=== PATIENT | female | born 1945 | race Caucasian/White ===

== ENCOUNTER 2022-05-23 11:55 | Emergency (ER) | payer OTHER ==
[2022-05-23 12:57] LABS: BASOPHIL 0.6 % (0-2); EOSINOPHIL 2.1 % (0-7); HCT 40.4 % (37.0-47.0); LYMPHOCYTE 14.5 % (15-48); MCH 31.6 pg (25.0-31.0); MCHC 32.2 g/dL (32.0-36.0); MCV 98.1 fL (78.0-100.0); MONOCYTE 7.9 % (0-12); MPV 9.9 fL (6.0-9.5); NEUTROPHIL 74.6 % (41-80); NRBC 0; PLT 332 K/uL (150-400); RBC 4.12 M/uL (4.20-5.40); RDW 14.8 % (11.5-14.0); WBC 9.7 K/uL (4.0-10.5)
[2022-05-23 14:10] LABS: BILIRUBIN - TOTAL 0.6 mg/dL (0.2-1.0); BUN/CREAT RATIO (CALC) 21.3 RATIO; CREATININE 0.75 mg/dL (0.51-0.95); GLOBULIN (CALCULATION) 4.6 g/dL; POTASSIUM 3.4 mmol/L (3.5-5.1); TOTAL PROTEIN 6.6 g/dL (6.4-8.2)
[2022-05-24] MEDS ORDERED: MEDROL 4MG DOSEP4 MG PO (12:34)
[2022-05-24] MEDS ORDERED: AMOXICILLIN875 MG PO (12:34)
== END 2022-05-23 16:45 | disposition home or self-care (01) ==
LOC: FER 11:55
PROVIDERS: Emergency Medicine
DX: J44.1 Chronic obstructive pulmonary disease with (acute) exacerbation (principal); R91.8 Other nonspecific abnormal finding of lung field; I25.10 Atherosclerotic heart disease of native coronary artery without angina pectoris; Z28.310 Unvaccinated for COVID-19; I50.9 Heart failure, unspecified; Z88.2 Allergy status to sulfonamides; Z88.6 Allergy status to analgesic agent; Z91.041 Radiographic dye allergy status
CPT/HCPCS: 36415; 36600; 71045; 71250; 80053; 82803; 83605; 83880; 84145; 84484; 85025; 85379; 93005; 94760

== ENCOUNTER 2022-06-20 12:10 | Inpatient (IN) | payer OTHER ==
[~2022-06-20] VITALS: Ht 167.6 cm; Wt 97.7 kg
[~2022-06-20 12:10] MED LIST: AMOXICILLIN875 MG PO; MEDROL 4MG DOSEP4 MG PO
[2022-06-20 12:46] LABS: BASOPHIL 0.4 % (0-2); EOSINOPHIL 0.6 % (0-7); HCT 42.1 % (37.0-47.0); HGB 13.4 g/dl (12.5-16.0); LYMPHOCYTE 9.6 % (15-48); MCH 31.2 pg (25.0-31.0); MCHC 31.8 g/dL (32.0-36.0); MCV 97.9 fL (78.0-100.0); MONOCYTE 5.6 % (0-12); MPV 9.7 fL (6.0-9.5); NEUTROPHIL 83.1 % (41-80); NRBC 0; PLT 399 K/uL (150-400); RDW 14.6 % (11.5-14.0); WBC 17.7 K/uL (4.0-10.5)
[2022-06-20 13:04] LABS: CREATININE 0.8 mg/dL (0.51-0.95); POTASSIUM 3.9 mmol/L (3.5-5.1)
[2022-06-20 13:08] LABS: LACTIC ACID 1.4 mmol/L (0.4-1.9)
[2022-06-20 13:49] LABS: PROTHROMBIN TIME 63.3 SECONDS (11.9-13.9)
[2022-06-20 14:04] LABS: INR 7.91 (0.9-1.2)
[2022-06-20 14:05] LABS: PTT 153.8 SECONDS (24.9-34.6)
[2022-06-20 18:03] LABS: CORONAVIRUS 2019 SARS-COV-2 NEGATIVE (NEGATIVE); INFLUENZA A NAA NEGATIVE (NEGATIVE)
[2022-06-20] MEDS ORDERED: CITALOPRAM HBR20 MG PO (18:03)
[2022-06-20] MEDS ORDERED: HYDROCODON-ACE1 EAC6 PO (18:03)
[2022-06-20] MEDS ORDERED: BUMEX1 MG PO (18:04)
[2022-06-20] MEDS ORDERED: NEURONTIN300 MG PO (18:05)
[2022-06-20] MEDS ORDERED: SUCRALFATE1 GM/10 ML PO (18:05)
[2022-06-20] MEDS ORDERED: NYSTOP60 GM TOP (18:06)
[2022-06-20] MEDS ORDERED: POTASSIUM CHLO20 ME1 PO (18:07)
[2022-06-20] MEDS ORDERED: ANORO ELLIPTA1 EACH INH (18:08)
[2022-06-20] MEDS ORDERED: WARFARIN SODIUM3 MG PO (18:11)
[2022-06-21 07:16] LABS: HCT 40.2 % (37.0-47.0); HGB 12.9 g/dl (12.5-16.0); MCHC 32.1 g/dL (32.0-36.0); MCV 99.8 fL (78.0-100.0); MPV 9.8 fL (6.0-9.5); RBC 4.03 M/uL (4.20-5.40); RDW 14.6 % (11.5-14.0); WBC 15.9 K/uL (4.0-10.5)
[2022-06-21 07:23] LABS: PROTHROMBIN TIME 84.7 SECONDS (11.9-13.9)
[2022-06-21 07:43] LABS: BUN/CREAT RATIO (CALC) 29.5 RATIO; CREATININE 0.78 mg/dL (0.51-0.95); POTASSIUM 3.6 mmol/L (3.5-5.1)
[2022-06-21 07:53] LABS: INR 11.55 (0.9-1.2)
--- NOTE | 2022-06-21 14:41 | NUR ---
06/21/22 Ms. Romero lives at home with her former spouse. She is bedbound and the former spouse provides care. A caregiver through [facility] (Likely a Waiver program) is provided 5 days a week for 7 hours. Ms. Romero is followed by [facility]. [facility] has been notified of admission. Please call [facility] at [phone] if patient discharges over the weekend. - Ms. De Luna has a hospital bed and yousif lift.
[2022-06-22 05:55] LABS: HCT 34.1 % (37.0-47.0); MCH 31.7 pg (25.0-31.0); MCHC 32.3 g/dL (32.0-36.0); MCV 98.3 fL (78.0-100.0); MPV 9.6 fL (6.0-9.5); RBC 3.47 M/uL (4.20-5.40); RDW 14.9 % (11.5-14.0); WBC 9.5 K/uL (4.0-10.5)
[2022-06-22 06:00] LABS: INR 11.25 (0.9-1.2)
[2022-06-22 06:06] LABS: BUN/CREAT RATIO (CALC) 35.1 RATIO; CREATININE 0.74 mg/dL (0.51-0.95); POTASSIUM 4.1 mmol/L (3.5-5.1)
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
[2022-06-23 06:36] LABS: BASOPHIL 0.9 % (0-2); EOSINOPHIL 1.4 % (0-7); HCT 31.5 % (37.0-47.0); HGB 9.8 g/dl (12.5-16.0); MCHC 31.1 g/dL (32.0-36.0); MCV 99.7 fL (78.0-100.0); MONOCYTE 8.9 % (0-12); MPV 9.5 fL (6.0-9.5); NRBC 0; PLT 334 K/uL (150-400); RBC 3.16 M/uL (4.20-5.40); RDW 14.7 % (11.5-14.0); WBC 8.1 K/uL (4.0-10.5)
[2022-06-23 06:44] LABS: INR 2.12 (0.9-1.2)
[2022-06-23 06:54] LABS: BUN/CREAT RATIO (CALC) 31.8 RATIO; CREATININE 0.66 mg/dL (0.51-0.95)
[2022-06-23] MEDS ORDERED: TOPROL XL 25MG25 MG PO (08:40)
[2022-06-23] MEDS ORDERED: CARDIZEM CD180 MG PO (08:40)
[2022-06-23] MEDS ORDERED: NORCO 5-325 TA1 EACH PO (08:46)
[2022-06-23] MEDS ORDERED: AMOX TR-K CLV1 EAC4 PO (08:46)
[2022-06-23] MEDS ORDERED: JANTOVEN2 MG PO (08:49)
[2022-06-23] MEDS ORDERED: JANTOVEN1 MG PO (09:06)
== END 2022-06-23 10:46 | disposition home health service (06) | DRG 155 ==
LOC: FER 12:10 → FMS 15:25 → FTCU 15:25 → FMS 16:47 → FTCU 06-21 12:09
PROVIDERS: Emergency Medicine; Family Medicine; ADMIT Allergy & Immunology Allergy
DX: K11.20 Sialoadenitis, unspecified (principal); C78.01 Secondary malignant neoplasm of right lung; I48.91 Unspecified atrial fibrillation; I50.9 Heart failure, unspecified; R79.1 Abnormal coagulation profile; Z20.822 Contact with and (suspected) exposure to COVID-19; L89.322 Pressure ulcer of left buttock, stage 2; L89.312 Pressure ulcer of right buttock, stage 2; L89.152 Pressure ulcer of sacral region, stage 2; J44.9 Chronic obstructive pulmonary disease, unspecified; C80.1 Malignant (primary) neoplasm, unspecified; Z88.5 Allergy status to narcotic agent; Z96.643 Presence of artificial hip joint, bilateral; Z96.653 Presence of artificial knee joint, bilateral; F17.210 Nicotine dependence, cigarettes, uncomplicated; Z79.01 Long term (current) use of anticoagulants; N18.2 Chronic kidney disease, stage 2 (mild); Z28.310 Unvaccinated for COVID-19
CPT/HCPCS: 36415; 70490; 71045; 80048; 83605; 84145; 85025; 85610; 85730; 93005; J0295; J1160; J2270; J2405; J3430; J3475; J7040; J7120; U0002

== ENCOUNTER 2022-07-12 13:18 | Emergency (ER) | payer OTHER ==
[~2022-07-12 13:18] MED LIST changes: +AMOX TR-K CLV1 EAC4 PO; +ANORO ELLIPTA1 EACH INH; +BUMEX1 MG PO; +CARDIZEM CD180 MG PO; +CITALOPRAM HBR20 MG PO; +HYDROCODON-ACE1 EAC6 PO; +JANTOVEN1 MG PO; +JANTOVEN2 MG PO; +NEURONTIN300 MG PO; +NORCO 5-325 TA1 EACH PO; +NYSTOP60 GM TOP; +POTASSIUM CHLO20 ME1 PO; +SUCRALFATE1 GM/10 ML PO; +TOPROL XL 25MG25 MG PO; +WARFARIN SODIUM3 MG PO
[2022-07-12 13:58] LABS: BASOPHIL 0.3 % (0-2); EOSINOPHIL 0.6 % (0-7); HCT 33.1 % (37.0-47.0); HGB 10.6 g/dl (12.5-16.0); LYMPHOCYTE 9.3 % (15-48); MCH 31.8 pg (25.0-31.0); MCV 99.4 fL (78.0-100.0); MONOCYTE 6.6 % (0-12); NEUTROPHIL 81.8 % (41-80); NRBC 0; PLT 397 K/uL (150-400); RBC 3.33 M/uL (4.20-5.40); RDW 18.2 % (11.5-14.0); WBC 23.3 K/uL (4.0-10.5)
[2022-07-12 14:25] LABS: ALBUMIN 1.2 g/dL (3.4-5.0); ALKALINE PHOSHATASE 155 U/L (46-116); ALT <6 U/L (14-59); AST 21 U/L (15-37); BILIRUBIN - TOTAL 0.5 mg/dL (0.2-1.0); BUN 30 mg/dL (7-18); BUN/CREAT RATIO (CALC) 20.4 RATIO; CHLORIDE 95 mmol/L (98-107); CO2 (BICARBONATE) 33 mmol/L (21-32); CREATININE 1.47 mg/dL (0.51-0.95); GLOBULIN (CALCULATION) 5.1 g/dL; GLUCOSE 126 mg/dL (74-106); LIPASE 50 U/L (73-393); MAGNESIUM 1.4 mg/dL (1.8-2.4); POTASSIUM 3.8 mmol/L (3.5-5.1); PROTHROMBIN TIME 53.2 SECONDS (11.9-13.9); TOTAL PROTEIN 6.3 g/dL (6.4-8.2)
[2022-07-12 14:35] LABS: INR 6.3 (0.9-1.2); PTT 102.2 SECONDS (24.9-34.6)
[2022-07-12 14:37] LABS: LACTIC ACID 3.3 mmol/L (0.4-1.9)
[2022-07-12 18:30] LABS: HCT 30.4 % (37.0-47.0); HGB 9.7 g/dL (12.5-16.0)
== END 2022-07-12 18:44 | disposition other institution (70) ==
LOC: FER 13:18
PROVIDERS: Emergency Medicine
DX: A41.9 Sepsis, unspecified organism (principal); K92.2 Gastrointestinal hemorrhage, unspecified; C34.90 Malignant neoplasm of unspecified part of unspecified bronchus or lung; R65.21 Severe sepsis with septic shock; D68.8 Other specified coagulation defects; I48.91 Unspecified atrial fibrillation; J44.9 Chronic obstructive pulmonary disease, unspecified; Z79.01 Long term (current) use of anticoagulants; Z20.822 Contact with and (suspected) exposure to COVID-19; Z88.6 Allergy status to analgesic agent; Z88.5 Allergy status to narcotic agent; Z91.041 Radiographic dye allergy status
CPT/HCPCS: 31500; 36415; 36600; 71045; 71250; 80053; 82271; 82803; 83605; 83690; 83735; 83880; 84145; 84484; 85014; 85018; 85025; 85610; 85730; 87040; 93005; 94762; 96365; 96366; 96368; 96375; 96376; C9113; J1170; J2250; J2405; J2543; J3010; J3370; J3430; J7030; J7050; U0002